=== PATIENT | male | born 1965 | race Caucasian/White ===

== ENCOUNTER → 2017-11-01 14:20 | Emergency (ER) | payer OTHER ==
[~2017-11-01 14:20] MED LIST: Bisoprolol TAB* 5 MG PO ONE; Metoprolol Tartrate IV* 1 MG/ML 5 ML VIAL IV ONE
[2017-11-01 16:13] LABS: ABS Basophils 0 10^3/ul (0-0.2); ABS Eosinophils 0 10^3/ul (0-0.6); ABS Lymphocytes 1.5 10^3/ul (1.0-4.8); ABS Monocytes 0.4 10^3/ul (0-0.8); ABS Neutrophils 4.2 10^3/ul (1.5-7.7); ABS Nucleated RBC 0 10^3/ul; Eosinophil % 0.6 % (0-6); Hematocrit 44 % (42-52); Hemoglobin 15.4 g/dl (14.0-18.0); Lymphocyte % 24.3 % (25-47); Mean Corpuscular HGB Conc 35 g/dl (31-36); Mean Corpuscular Hemoglobin 29 pg (27-31); Mean Corpuscular Volume 82 fL (80-94); Mean Platelet Volume 8.3 um3 (7.4-10.4); Nucleated Red Blood Cells % 0; Platelet Count 177 10^3/ul (150-450); Red Cell Distribution Width 14 % (10.5-15); White Blood Count 6.1 10^3/ul (3.5-10.8)
[2017-11-01 16:28] LABS: EGFR Non-African American 95.6 (>60)
--- NOTE | 2017-11-01 16:52 | RAD ---
HISTORY: Headache, hypertension COMPARISONS: None TECHNIQUE: Multiple contiguous axial CT scans were obtained of the head without intravenous contrast. FINDINGS: HEMORRHAGE/INFARCT: There is no hemorrhage or acute infarct. MASSES/SHIFT: There is no mass or shift. EXTRA-AXIAL SPACES: There are no extra-axial fluid collections. SULCI AND VENTRICLES: The sulci and ventricles are normal in size and position for the patient's stated age. CEREBRUM: There are no focal parenchymal abnormalities. BRAINSTEM: There are no focal parenchymal abnormalities. CEREBELLUM: There are no focal parenchymal abnormalities. VESSELS: The vessels are grossly normal. PARANASAL SINUSES: The paranasal sinuses are clear. ORBITS: The orbits are unremarkable. BONES AND SOFT TISSUE: No bone or soft tissue abnormalities are noted. OTHER: None IMPRESSION: NO ACUTE INTRACRANIAL PATHOLOGY.
[2017-11-01 21:07] VITALS: BP 159/99
--- NOTE | 2017-11-04 13:12 | ED ---
Marii Niño Nilda, scribed for Mat Guardado MD on 11/01/17 at 1833 . Hypertension - HPI Summary HPI Summary: This patient is a 52 year old M presenting to [facility] with a chief complaint of constant chronic headache (top of his head) for the past 4-5 years, noting that he wakes up with QUINONES every day. The patient rates the pain 4/10 in severity. Symptoms aggravated and alleviated by nothing. Patient reports ringing in ears and blurry vision, but denies dizziness, lightheadedness, CP, SOB, and DUONG. Last CT Brain was 3-4 years ago, per pt. PMHx HTN. Medications for HTN taken once a night. - History of Current Complaint Chief Complaint: EDHypertension Stated Complaint: HIGH BP Time Seen by Provider: 11/01/17 15:38 Hx Obtained From: Patient Onset/Duration: Started Weeks Ago, Still Present Timing: Constant Aggravating Factor(s): Nothing Alleviating Factor(s): Nothing Associated Signs & Symptoms: Other: - QUINONES, ringing in ears and blurry vision, but denies dizziness, lightheadedness, CP, SOB, and DUONG. - Allergies/Home Medications Allergies/Adverse Reactions: Allergies Allergy/AdvReac Type Severity Reaction Status Date / Time No Known Allergies Allergy Verified 11/01/17 14:36 Home Medications: Home Medications Amitriptyline TAB* [Elavil TAB*] 25 mg PO DAILY 11/01/17 [History Confirmed ] Baclofen TAB* [Lioresal TAB*] 20 mg PO TID 11/01/17 [History Confirmed 11/01/17 ] Bisoprolol/Hydrochlorothiazide [Ziac 5-6.25 mg-] 1 tab PO DAILY 11/01/17 [ History Confirmed 11/01/17] Cyclobenzaprine TAB* [Flexeril 10 MG TAB*] 10 mg PO BEDTIME PRN 11/01/17 [ History Confirmed 11/01/17] Insulin ISOPH/REG 70/30 (*) [HumuLIN 70/30 (*)] 50 units SUBCUT TID AC 11/01/17 [History Confirmed 11/01/17] Pregabalin CAP(*) [Lyrica CAP(*)] 50 mg PO BID 11/01/17 [History Confirmed 11/01] PMH/Surg Hx/FS Hx/Imm Hx Endocrine/Hematology History: Reports: Hx Diabetes - Type II, Hx Thyroid Disease Cardiovascular History: Reports: Hx Hypertension Respiratory History: Denies: Hx Asthma, Hx Chronic Obstructive Pulmonary Disease (COPD) GI History: Denies: Hx Ulcer Infectious Disease History: No Infectious Disease History: Denies: Hx Clostridium Difficile, Hx Hepatitis, Hx Human Immunodeficiency Virus (HIV), Hx of Known/Suspected MRSA, Hx Shingles, Hx Tuberculosis, Hx Known/ Suspected VRE, Hx Known/Suspected VRSA, History Other Infectious Disease, Traveled Outside the [place] in Last 30 Days - Family History Known Family History: Positive: Cardiac Disease, Hypertension, Diabetes - Social History Alcohol Use: Rare Substance Use Type: Reports: None Smoking Status (MU): Former Smoker Type: Cigarettes Length of Time of Smoking/Using Tobacco: 27 years Have You Smoked in the Last Year: No Review of Systems Negative: Fever, Chills Positive: Blurred Vision, Other - ringing in the ears. Negative: Erythema Negative: Sore Throat Negative: Chest Pain Positive: Other - negative DUONG. Negative: Shortness Of Breath, Cough Negative: Abdominal Pain, Vomiting, Nausea Negative: dysuria, hematuria Negative: Myalgia, Edema Negative: Rash Neurological: Other - negative dizziness, lightheadedness Positive: Headache All Other Systems Reviewed And Are Negative: Yes Physical Exam - Summary Physical Exam Summary: Constitutional: Well-developed, Well-nourished, Alert. (-) Distressed Skin: Warm, Dry HENT: Normocephalic; Atraumatic Eyes: Conjunctiva normal Neck: Musculoskeletal ROM normal neck. (-) JVD, (-) Stridor, (-) Tracheal deviation Cardio: Rhythm regular, rate normal, Heart sounds normal; Intact distal pulses; The pedal pulses are 2+ and symmetric. Radial pulses are 2+ and symmetric. (-) Murmur Pulmonary/Chest wall: Effort normal. (-) Respiratory distress, (-) Wheezes, (-) Rales Abd: Soft, (-) Tenderness, (-) Distension, (-) Guarding, (-) Rebound Musculoskeletal: (-) Edema Lymph: (-) Cervical adenopathy Neuro: Alert, Oriented x3 Psych: Mood and affect Normal Triage Information Reviewed: Yes Vital Signs On Initial Exam: Initial Vitals Temp Pulse Resp BP Pulse Ox 98.2 F 84 16 188/105 96 11/01/17 14:32 11/01/17 14:32 11/01/17 14:32 11/01/17 14:32 11/01/17 14:32 Vital Signs Reviewed: Yes Diagnostics - Vital Signs Vital Signs Temp Pulse Resp BP Pulse Ox 11/01/17 14:32 98.2 F 84 16 188/105 96 - Laboratory Result Diagrams: 11/01/17 16:04 11/01/17 16:04 Lab Statement: Any lab studies that have been ordered have been reviewed, and results considered in the medical decision making process. - CT Brain CT Interpretation Completed By: Radiologist - CT Brain, per radiologist, reveals no acute intracranial pathology. Dr. Guardado has reviewed this radiology report. - EKG 1545 Cardiac Rate: NL EKG Rhythm: Sinus Rhythm - 83 bpm EKG Interpretation: no STEMI Re-Evaluation - Re-Evaluation First Eval Re-Evaluation Time: 21:05 Comment: Pt said he had QUINONES for the past 5 years that spreads from back of neck to top of head. Symptoms worsened with movement and is sometimes associated with paresthesia on left side. Discussed labs, imaging, and D/C plan with pt. Pt agreeable to D/C. Hypertension Course/Dx - Course Assessment/Plan: This patient is a 52 year old M presenting to [facility] with a chief complaint of constant chronic headache (top of his head) for the past 4-5 years, noting that he wakes up with QUINONES every day. The patient rates the pain 4/ 10 in severity. Symptoms aggravated and alleviated by nothing. Patient reports ringing in ears and blurry vision, but denies dizziness, lightheadedness, CP, SOB, and DUONG. Last CT Brain was 3-4 years ago, per pt. PMHx HTN. Medications for HTN taken once a night. An EKG reveals NSR, 83 bpm, no STEMI. CT Brain, per radiologist, reveals no acute intracranial pathology. Dr. Guardado has reviewed this radiology report. BP responded nicely to increased dose of Bisoprolol to 10 mg. Pt has been taking his medications at night. Pt was told that BP spikes typically occur in the morning and medications should be taken in morning. No evidence of end organ damage. No evidence of hypertensive urgency. QUINONES likely unrelated to the HTN. [[id number]] discussed case with Dr. Burnham ( neuro). Pt had outpatient MRI and neurology f/u planned. Pt is stable and will be D/C with f/u with Dr. Burnham and PCP in 3-5 days. Dx uncontrolled HTN and chronic QUINONES. - Diagnoses Provider Diagnoses: Uncontrolled hypertension, Chronic headache - Physician Notifications Discussed Care Of Patient With: Yuridia Burnham - Neurology Time Discussed With Above Provider: 20:47 Instructed by Provider To: Other - discussed case. Discharge - Sign-Out/Discharge Documenting (check all that apply): Discharge - Discharge Plan Condition: Stable Disposition: HOME Prescriptions: Bisoprolol/Hydrochlorothiazide [Ziac 10-6.25 mg-] 1 tab PO DAILY #14 tab Patient Education Materials: Heart Healthy Diet (ED), Hypertension (ED), General Headache (ED) Referrals: Joss Huff MD [Primary Care Provider] - 3 Days Yuridia Burnham MD [Medical Doctor] - 3 Days Additional Instructions: Keep your appointment for MRI and neurology outpatient. RETURN TO THE EMERGENCY DEPARTMENT FOR CHANGING OR WORSENING SYMPTOMS. The documentation as recorded by the Marii rodrigues Nilda accurately reflects the service I personally performed and the decisions made by me, Mat Guardado MD.
== END | disposition home or self-care (01) ==
LOC: ED 14:20
DX: I10 Essential (primary) hypertension (principal); R51 Headache; Z87.891 Personal history of nicotine dependence; Z86.79 Personal history of other diseases of the circulatory system; H53.8 Other visual disturbances
CPT/HCPCS: 36415; 70450; 80053; 83605; 84484; 85025; 93005; 96374; 99284; A9270-GY; J3490

== ENCOUNTER 2018-05-25 14:09 | Emergency (ER) | payer OTHER ==
[2018-05-25 14:40] VITALS: BP 168/102
--- NOTE | 2018-05-25 15:40 | UC ---
Back Pain HPI - HPI Summary HPI Summary: The patient is a 52-year-old male that had the acute onset of left CVA pain yesterday afternoon. The pain is colicky in nature. Today the pain moved to his left lower quadrant of the abdomen. He now has increased frequency of urination. His pain is been as severe as an 8 out of 10. Currently his pain is a 4 out of 10. His had no fever or chills. Denies any nausea vomiting or diarrhea. He is a type II diabetic with hypertension. He states that both his diabetic control and blood pressure control have been problematic in the past. He states that he checked his blood sugar today and it was about 250. States that was a good reading for him. - History of Current Complaint Chief Complaint: UCAbdominalPain Stated Complaint: ABD PAIN Time Seen by Provider: 05/25/18 15:25 Hx Obtained From: Patient Onset/Duration: Sudden Onset, Lasting Hours Timing: Constant Severity Initially: Moderate Severity Currently: Mild Pain Intensity: 4 Pain Scale Used: 0-10 Numeric Back Pain: Is Discrete @ - L CVA, Radiates To - L LQ ABD Character: Sharp Aggravating Factor(s): Nothing Alleviating Factor(s): Nothing Associated Signs And Symptoms: Positive: Abdominal Pain, Flank Pain, Other - increased freq urination today. Negative: Swelling, Redness, Bruising, Fever, Weakness, Numbness, Tingling, Bladder Incontinence, Bowel Incontinence, Weight Loss, Pain with Weight Bearing - Allergies/Home Medications Allergies/Adverse Reactions: Allergies Allergy/AdvReac Type Severity Reaction Status Date / Time No Known Allergies Allergy Verified 05/25/18 14:40 PMH/Surg Hx/FS Hx/Imm Hx Previously Healthy: Yes Endocrine History: Diabetes, Dyslipidemia Cardiovascular History: Hypertension - Surgical History Surgical History: None - Family History Known Family History: Positive: Cardiac Disease, Hypertension, Diabetes - Social History Alcohol Use: Occasionally Substance Use Type: None Smoking Status (MU): Former Smoker Type: Cigarettes Length of Time of Smoking/Using Tobacco: 27 years Have You Smoked in the Last Year: No When Did the Patient Quit Smoking/Using Tobacco: 2004 Review of Systems Constitutional: Negative Skin: Negative Eyes: Negative ENT: Negative Respiratory: Negative Cardiovascular: Negative Gastrointestinal: Abdominal Pain Genitourinary: Frequency Motor: Negative Neurovascular: Negative Musculoskeletal: Negative Neurological: Negative Psychological: Negative All Other Systems Reviewed And Are Negative: Yes Physical Exam Triage Information Reviewed: Yes Appearance: Well-Appearing, No Pain Distress, Well-Nourished Vital Signs: Initial Vital Signs Temp 98.2 F 05/25/18 14:34 Pulse 87 05/25/18 14:34 Resp 18 05/25/18 14:34 BP 168/102 05/25/18 14:34 Pulse Ox 98 05/25/18 14:34 Eyes: Positive: Conjunctiva Clear ENT: Positive: Hearing grossly normal, Uvula midline. Negative: Nasal congestion, Nasal drainage, Tonsillar swelling, Tonsillar exudate, Trismus, Muffled voice, Hoarse voice, Dental tenderness, Sinus tenderness Dental Exam: Normal Neck: Positive: Supple, Nontender, No Lymphadenopathy Respiratory: Positive: Lungs clear, Normal breath sounds, No respiratory distress, No accessory muscle use Cardiovascular: Positive: RRR, No Murmur Abdomen Description: Positive: Nontender, No Organomegaly, Soft. Negative: Bruit, CVA Tenderness (R), CVA Tenderness (L), Distended, Guarding Bowel Sounds: Positive: Present Musculoskeletal: Positive: ROM Intact, No Edema Neurological: Positive: Alert Psychological Exam: Normal Skin Exam: Normal Diagnostics - Laboratory Diagnostic Studies Completed/Ordered: +++ GLUCOSE, TR RBCs UA Back Pain Course/Dx - Course Course Of Treatment: NO CARDIAC NURSE PRACTITIONER HERE. Offerred to send patient to ER to [facility] to get a definative dx. He declines - Differential Dx/Diagnosis Provider Diagnoses: left flank pain of uncertain cause. suspect kidney stone Discharge - Sign-Out/Discharge Documenting (check all that apply): Patient Departure All imaging exams completed and their final reports reviewed: No Studies - Discharge Plan Condition: Stable Disposition: HOME Patient Education Materials: Kidney Stones (ED), Flank Pain (ED) Referrals: Joss Huff MD [Primary Care Provider] - As Soon As Possible (call in AM. Mention your acute onset of L back pain which has moved to the L lower abd. You had trace blood in urine. We were unable to image you for a stone this afternoon.) Additional Instructions: Strain urine you may have a kidney stone aleve 1-2 twice daily with food as needed for pain TO ER FOR: increased pain fever vomiting - Billing Disposition and Condition Condition: STABLE Disposition: Home
== END 2018-05-25 15:55 | disposition home or self-care (01) ==
LOC: UCEAST 14:09
DX: R10.32 Left lower quadrant pain (principal); R35.0 Frequency of micturition; Z87.891 Personal history of nicotine dependence
CPT/HCPCS: 81003; 99212; G0463

== ENCOUNTER 2018-06-18 08:02 | Day surgery (SDC) | payer OTHER ==
--- NOTE | 2018-06-13 21:42 | HP ---
CC: Dr. Joss Huff * ADMITTING HISTORY AND PHYSICAL: DATE OF ADMISSION: 06/18/18 ADMITTING DIAGNOSES: 1. Left renal calculus. 2. Left flank pain. PLANNED PROCEDURE: Left stent insertion and shock wave lithotripsy of left renal calculus. SURGEON: Dr. Gunn. HISTORY OF PRESENT ILLNESS: Myles Peguero is a 52-year-old gentleman who has had episodic left flank pain for the last 2 to 3 weeks. He was noted to have a fairly large about 1.2 to 1.3 cm calculus, which is located in the left lower pole at the time of his elevation, but I suspect it has been moving between the renal pelvis and the lower pole causing intermittent pain. PAST MEDICAL HISTORY: Significant for: 1. Diabetes mellitus. 2. Hypertension. 3. Hypothyroidism. 4. High cholesterol. 5. Chronic headaches. PAST SURGICAL HISTORY: Negative. MEDICATIONS ON ADMISSION: 1. Levothyroxine 50 mcg daily. 2. Bisoprolol mg daily. 3. Norvasc 5 mg daily. 4. Meloxicam 7.5 mg daily. 5. Losartan 100 mg daily. 6. Fenofibrate 160 mg daily. 7. Lyrica 50 mg daily. 8. Zonisamide 50 mg daily. 9. Humulin injections as directed. ALLERGIES: No known drug allergies. SMOKING HISTORY: He is a former smoker who quit in 2004 and has a 20-pack year smoking history prior to that. PHYSICAL EXAMINATION GENERAL: Reveals a pleasant, middle-aged gentleman. VITAL SIGNS: Blood pressure is 126/82, pulse 86 per minute, oxygen saturation 97% on room air. LUNGS: Clear bilaterally. CARDIOVASCULAR EXAM: Regular rate and rhythm. S1, S2. ABDOMEN: Soft with left flank tenderness. IMPRESSION: A 52-year-old gentleman with episodic left flank pain and a large left renal calculus, which I suspect has been moving between the renal pelvis and the lower pole causing his episodic pain. PLAN: Plan is for left stent insertion and shockwave lithotripsy of left renal calculus. I have discussed the procedure in detail including possible risks of bleeding, infection, incomplete fragmentation, and possible injury to the kidney. In addition to the large calculus, he also has an additional 3 mm left renal calculus, which I may try to fragment at the same time if feasible. [id number]/[facility] #: [id number] CHAPIN
[~2018-06-18 08:02] MED LIST changes: -Bisoprolol TAB* 5 MG PO ONE; +Buffered Lidocaine 0.9% SYRIN* 5 ML/SYR SYRINGE INTRADERM ONE; +Famotidine IV* 10 MG/ML 2 ML (20 mg) IV ONE; -Metoprolol Tartrate IV* 1 MG/ML 5 ML VIAL IV ONE
[2018-06-18] MEDS ORDERED: cefTRIAXone(*) 2 GM ADDV.VIAL IVPB ONE (08:36)
[2018-06-18] MEDS ORDERED: Famotidine IV* 10 MG/ML 2 ML (20 mg) ONE (08:36)
[2018-06-18] MEDS ORDERED: Propofol* 10 MG/ML 20 ML BTL IV PUSH ONE (10:23)
[2018-06-18] MEDS ORDERED: Midazolam* 1 MG/ML 5 ML VIAL (5 MG) ONE (10:23)
[2018-06-18] MEDS ORDERED: KETAMINE HCL* 50 MG/ML 10 ML VIAL ONE (10:23)
[2018-06-18] MEDS ORDERED: fentaNYL* 50 MCG/ML 2 ML VIAL (100 MCG VIAL) ONE ×2 (10:23→14:07)
[2018-06-18] MEDS ORDERED: Ondansetron INJ* 2 MG/ML VIAL ONE ×2 (10:23→14:07)
[2018-06-18] MEDS ORDERED: Dexamethasone IV* 4 MG/ML 1 ML (4 MG) ONE (10:23)
[2018-06-18] MEDS ORDERED: Lidocaine 2% PF * 5 ML VIAL ONE (10:23)
[2018-06-18] MEDS ORDERED: Ketorolac INJ* 30 MG/ML 1 ML VIAL ONE (10:23)
[2018-06-18] MEDS ORDERED: Morphine VIAL* 10 MG/ML 1 ML VIAL ONE (10:39)
[2018-06-18] MEDS ORDERED: Iohexol 180 (CONTRAST) 10 ML SDV IV ONE (11:10)
[2018-06-18] MEDS ORDERED: Furosemide IV* 10 MG/ML 2 ML VIAL (20 MG) ONE (11:22)
[2018-06-18] MEDS ORDERED: EPHEDrine (Pressors)* 50 MG/ML VIAL ONE (11:26)
[2018-06-18] MEDS ORDERED: Naloxone* 0.4 MG/ML 1 ML VIAL IV PRN (11:36)
[2018-06-18] MEDS ORDERED: oxyCODONE/Acetamin 5/325 MG* TAB PO PRN (11:36)
[2018-06-18] MEDS ORDERED: Ondansetron INJ* 2 MG/ML VIAL IV PRN (11:36)
[2018-06-18] MEDS ORDERED: oxyCODONE/Acetamin 5/325 MG* TAB ONE (14:07)
[2018-06-18] MEDS: fentaNYL* 50 MCG/ML 2 ML VIAL (100 MCG VIAL) IV PRN ×2 (14:08→14:41)
[2018-06-18] MEDS ORDERED: Tamsulosin CAP* 0.4 MG ONE (16:34)
[2018-06-18] MEDS ORDERED: DiMENhydriNATE IV* 50 MG/ML VIAL ONE (16:50)
[2018-06-18 17:14] VITALS: BP 170/91
--- NOTE | 2018-06-19 02:34 | OP ---
CC: Joss Huff MD * DATE OF OPERATION: 06/18/18 - [facility] DATE OF : 63 SURGEON: Cresencio Gunn MD ANESTHESIOLOGIST: Dr. Su. ANESTHESIA: General. PRE-OP DIAGNOSES: 1. Left flank pain. 2. Left renal calculus. POST-OP DIAGNOSES: 1. Left flank pain. 2. Left renal calculus. OPERATIVE PROCEDURES: 1. Left retrograde and left stent insertion, and cystoscopy. 2. Shockwave lithotripsy of left renal calculus. COMPLICATIONS: None. STENT USED: A 7-Cambodian stent, left ureter. POSTOPERATIVE CONDITION: Stable. INDICATIONS: Myles Peguero is a 52-year-old gentleman who has had episodic left flank pain secondary to a large left renal calculus. I have discussed the procedure of lithotripsy including possible risks of bleeding, infection, incomplete fragmentation, possible injury to the kidney and he understands and wishes to proceed as planned. DESCRIPTION OF PROCEDURE: After induction of general anesthesia, the patient was placed in dorsal lithotomy position. Sequential compression devices were in place and functioning. 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 The prostate was mildly enlarged. The bladder was examined and appeared unremarkable. A guidewire was introduced into the left ureter. Retrograde pyelogram did not reveal any evidence of obstruction. A 7-Cambodian stent was introduced with good proximal and distal positioning noted. Next, the patient was placed on the lithotripsy table in a supine position. The calculus which was in the lower pole was localized using fluoroscopy. Shockwave lithotripsy was commenced at a rate of 60 shocks per minute. After the initial 300 shocks, there was a pause in lithotripsy for several minutes in an effort to minimize any potential trauma to the kidney. Lithotripsy was then resumed and periodic imaging revealed adequate localization and fragmentation. A total of 2400 shocks were administered. My plan is to obtain a postoperative x-ray to assess the degree of fragmentation prior to scheduling stent removal. The patient tolerated the procedure satisfactorily and was transferred back to the recovery area in stable condition. [id number]/[facility] #: [id number] MTDD
== END 2018-06-18 18:02 | disposition home or self-care (01) ==
LOC: OR 08:02
PROVIDERS: ATTEND Urology
DX: N20.0 Calculus of kidney (principal); E11.9 Type 2 diabetes mellitus without complications; Z79.4 Long term (current) use of insulin; I10 Essential (primary) hypertension; E03.9 Hypothyroidism, unspecified; E78.00 Pure hypercholesterolemia, unspecified; R51 Headache
CPT/HCPCS: 74018; A9270-GY; C1876; J0696; J1100; J1240; J1885; J1940; J2250; J2270; J2405; J2704; J3010

== ENCOUNTER 2018-12-24 12:38 | Day surgery (SDC) | payer OTHER ==
--- NOTE | 2018-12-21 11:07 | HP ---
CC: Dr. Huff; Cresencio Gunn MD ADMITTING HISTORY AND PHYSICAL: DATE OF ADMISSION: 12/24/18 ADMITTING DIAGNOSIS: Left renal calculi. PLANNED PROCEDURE: Shock-wave lithotripsy, left renal calculi. SURGEON: Dr. Gunn. HISTORY OF PRESENT ILLNESS: Myles Peguero is a 53-year-old diabetic with a history of recurrent shira l calculi. He was recently evaluated and noted to have multiple left renal calculi and is being brou ght in for shock-wave lithotripsy of the same. PAST MEDICAL HISTORY: Significant for: 1. Diabetes mellitus. 2. Hypertension. 3. Hypothyroidism. 4. 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 5. Renal calculi. MEDICATIONS: On admission: 1. Jardiance 10 mg daily. 2. Levothyroxine 75 mcg daily. 3. Bisoprolol/hydrochlorothiazide 1 tablet daily. 4. Lyrica 200 mg a day. 5. Losartan 100 mg a day. 6. Atorvastatin 20 mg a day. 7. Fenofibrate 160 mg a day. 8. Meloxicam 7.5 mg a day. 9. Zonisamide 1 tablet daily. 10. Humulin 70/30 of 50 units twice a day. ALLERGIES: No known drug allergies. FAMILY HISTORY: Negative for stones. SOCIAL HISTORY: Smoking history, he is a former smoker who quit in 2004 with a 20- pack year smoking history prior to that. REVIEW OF SYSTEMS: He is otherwise in good health. He denies any chest pain or shortness of breath. PHYSICAL EXAMINATION GENERAL: Reveals a pleasant middle-aged gentleman. VITAL SIGNS: Blood pressure is 142/90, pulse 69 per minute and regular, oxygen saturation 98% on gin m air, temperature 96.7. LUNGS: Clear bilaterally. CARDIOVASCULAR EXAM: Regular rate and rhythm. S1 and S2. ABDOMEN: Soft with left flank tenderness. IMPRESSION: A 53-year-old diabetic with left renal calculi. I have discussed the procedure of lith otripsy in detail including possible risks of bleeding, infection, incomplete fragmentation and he un derstands and wishes to proceed as planned with shock-wave lithotripsy of left renal calculi. [id number]/[facility] #: [id number]
[~2018-12-24 12:38] MED LIST changes: -Buffered Lidocaine 0.9% SYRIN* 5 ML/SYR SYRINGE INTRADERM ONE; +Buffered Lidocaine 1% SYRIN* 1 ML/SYRINGE INTRADERM ONE; +DiMENhydriNATE IV* 50 MG/ML VIAL IV PUSH ONE; +DiMENhydriNATE IV* 50 MG/ML VIAL IV PUSH PRN; +Lactated Ringers 1000 ML Bag* 1,000 ML IV SCH; +Morphine 4 MG/ML VIAL (1 ml) 4 MG/ML VIAL IV PRN; +Naloxone* 0.4 MG/ML 1 ML VIAL IV PRN; +Ondansetron INJ* 2 MG/ML VIAL ONE; +PROCHLORPERAZINE INJ 5 MG/ML 2 ML VIAL IV PRN; +fentaNYL* 50 MCG/ML 2 ML VIAL (100 MCG VIAL) IV PRN; +oxyCODONE/Acetamin 5/325 MG* TAB PO PRN
[2018-12-24] MEDS ORDERED: Ondansetron ODT TAB* 4 MG ONE (12:58)
[2018-12-24] MEDS ORDERED: cefTRIAXone(*) 2 GM ADDV.VIAL IVPB ONE (12:58)
[2018-12-24] MEDS ORDERED: Famotidine IV* 10 MG/ML 2 ML (20 mg) ONE (12:59)
[2018-12-24] MEDS ORDERED: Midazolam* 1 MG/ML 5 ML VIAL (5 MG) ONE (14:50)
[2018-12-24] MEDS ORDERED: fentaNYL* 50 MCG/ML 2 ML VIAL (100 MCG VIAL) ONE (14:50)
[2018-12-24] MEDS ORDERED: KETAMINE HCL* 50 MG/ML 10 ML VIAL ONE (15:37)
[2018-12-24] MEDS ORDERED: hydrALAZINE IV* 20 MG/ML VIAL ONE (15:57)
[2018-12-24] MEDS ORDERED: Lidocaine 2% PF * 5 ML VIAL ONE (15:57)
[2018-12-24] MEDS ORDERED: Propofol* 10 MG/ML 20 ML BTL ONE (15:57)
[2018-12-24 18:31] VITALS: BP 142/86
--- NOTE | 2018-12-25 01:58 | OP ---
CC: Dr. Joss Huff * DATE OF OPERATION: 12/24/18 - [facility] DATE OF : 63 SURGEON: Dr. Gunn. ANESTHESIOLOGIST: Dr. Ramos. ANESTHESIA: General. PRE-OP DIAGNOSIS: Left renal calculi. POST-OP DIAGNOSIS: Left renal calculi. OPERATIVE PROCEDURE: Shockwave lithotripsy of left renal calculi. COMPLICATIONS: None. POSTOPERATIVE CONDITION: Stable. INDICATIONS: Myles Peguero is a 53-year-old diabetic who was noted to have multiple left renal calculi. I discussed this with him and discussed the procedure of shockwave lithotripsy in detail including risks of bleeding, infection, incomplete fragmentation and he is now being brought in for the procedure. DESCRIPTION OF PROCEDURE: After induction of general anesthesia, the patient was placed on the lithotripsy table in supine position. There was a cluster of calculi in the lower pole of the left kidney. The dominant calculus was targeted under fluoroscopic monitoring, with shockwave at a rate of 90 shocks per minute. Initial fluoroscopy revealed good localization and fragmentation and a total of 2000 shocks were distributed amongst the calculi with good fragmentation observed. It should be noted that after the initial 300 shocks, there was a pause in lithotripsy for several minutes in an effort to minimize any potential trauma to the kidney. The patient tolerated the procedure satisfactorily and was transferred back to the recovery area in stable condition. [id number]/[facility] #: [id number] MTDD
== END 2018-12-24 18:30 | disposition home or self-care (01) ==
LOC: OR 12:38
PROVIDERS: ATTEND Urology
DX: N20.0 Calculus of kidney (principal); E11.9 Type 2 diabetes mellitus without complications; Z79.84 Long term (current) use of oral hypoglycemic drugs; I10 Essential (primary) hypertension; E03.9 Hypothyroidism, unspecified; R51 Headache
CPT/HCPCS: 74018; A9270-GY; J0360; J0696; J2250; J2704; J3010

== ENCOUNTER 2020-12-24 13:58 | Observation (INO) ==
[2020-12-24 16:01] LABS: ABS Lymphocytes 0.9 10^3/ul (1.0-4.8); ABS Monocytes 0.5 10^3/ul (0-0.8); ABS Neutrophils 5.3 10^3/ul (1.5-7.7); Hematocrit 46 % (42-52); Hemoglobin 15.8 g/dL (14.0-18.0); Lymphocyte % 12.7 %; Mean Corpuscular HGB Conc 34 g/dL (31-36); Mean Corpuscular Hemoglobin 28 pg (27-31); Mean Corpuscular Volume 83 fL (80-94); Mean Platelet Volume 8.4 fL (7.4-10.4); Nucleated Red Blood Cells % 0.2; Platelet Count 130 10^3/uL (150-450); Red Blood Count 5.56 10^6 /uL (4.18-5.48); Red Cell Distribution Width 15 % (10-15); White Blood Count 6.8 10^3/uL (3.5-10.8)
[2020-12-24 16:16] LABS: Activated Partial Thrombo Time 28.6 seconds (26.0-38.0); INR 1.11 (0.82-1.09)
[2020-12-24 16:48] LABS: Albumin 4.5 g/dL (3.2-5.2); Albumin/Globulin Ratio 1.7 (1-3); C Reactive Protein 77.58 mg/L (<8.01); Calcium 9.3 mg/dL (8.6-10.3); EGFR African American 81.2 (>60); EGFR Non-African American 67.1 (>60); Globulin 2.7 g/dL (2-4); Potassium 3.6 mmol/L (3.5-5.0); Total Bilirubin 1.6 mg/dL (0.2-1.0); Total Protein 7.2 g/dL (6.4-8.9)
[2020-12-24] MEDS ORDERED: Iohexol 300 (CONTRAST) 10 ML SDV IV ONE (17:03)
[2020-12-24] MEDS ORDERED: Iodixanol (CONTRAST) 320 MG/ML 100 ML SDV IV ONE (17:21)
[2020-12-24 18:49] LABS: Urine Appearance Clear; Urine Bilirubin Negative (Negative); Urine Blood Negative (Negative); Urine Color Yellow; Urine Glucose 3+(>=500 mg/dL) (Negative); Urine Ketones 1+ (Negative); Urine Nitrite Negative (Negative); Urine Protein Negative (Negative); Urine Urobilinogen Negative (Negative)
[2020-12-24 19:10] LABS: Urine Bacteria Absent (Absent); Urine Red Blood Cell Absent (Absent); Urine White Blood Cell 1+(6-10/hpf) (Absent)
[2020-12-24 19:11] LABS: Urine Squamous Epithelial Cell Present (Absent)
[2020-12-24] MEDS ORDERED: Ciprofloxacin 400mg IVPREMIX 400 MG/200 ML BAG IVPB ONE (20:08)
[2020-12-24] MEDS ORDERED: NS 0.9% 1000 ml BAG 1,000 ML IV ONE (20:08)
[2020-12-24] MEDS ORDERED: Ondansetron 4 mg VIAL 2 MG/ML 2 ml VIAL IV ONE (20:13)
[2020-12-24] MEDS ORDERED: Ondansetron 4 mg VIAL 2 MG/ML 2 ml VIAL ONE (20:14)
[2020-12-24] MEDS ORDERED: Dextrose 50% Syringe 50 ml 25 GM/50 ML SYRINGE IV PUSH PRN (21:35)
[2020-12-24] MEDS ORDERED: Lactated Ringers 1000 ml BAG 1,000 ML IV SCH (22:00)
[2020-12-24] MEDS ORDERED: Ciprofloxacin 400mg IVPREMIX 400 MG/200 ML BAG IVPB SCH (22:00)
[2020-12-24 23:25] LABS: Albumin 4.2 g/dL (3.2-5.2); Albumin/Globulin Ratio 1.7 (1-3); Calcium 8.3 mg/dL (8.6-10.3); EGFR African American 104.3 (>60); EGFR Non-African American 86.2 (>60); Globulin 2.5 g/dL (2-4); Potassium 3.2 mmol/L (3.5-5.0); Total Bilirubin 1.4 mg/dL (0.2-1.0); Total Protein 6.7 g/dL (6.4-8.9)
[2020-12-24] MEDS: cefTRIAXone 1 gm/50 mL NS BAG 1 GM/50 ML BAG IVPB SCH (23:44)
[2020-12-25] MEDS ORDERED: Potassium Chlor 10 meq TAB PO ONE (00:42)
[2020-12-25] MEDS ORDERED: Ondansetron 4 mg VIAL 2 MG/ML 2 ml VIAL IV PRN (00:53)
[2020-12-25] MEDS: metroNIDAZOLE IV 500 MG/100ML 500 MG/100 ML BAG IVPB SCH ×3 (06:05→21:45)
[2020-12-25 07:57] LABS: ABS Lymphocytes 0.9 10^3/ul (1.0-4.8); ABS Monocytes 0.8 10^3/ul (0-0.8); ABS Neutrophils 4.2 10^3/ul (1.5-7.7); Eosinophil % 0.1 %; Hematocrit 39 % (42-52); Hemoglobin 13.5 g/dL (14.0-18.0); Lymphocyte % 15.5 %; Mean Corpuscular HGB Conc 34 g/dL (31-36); Mean Corpuscular Hemoglobin 28 pg (27-31); Mean Corpuscular Volume 82 fL (80-94); Mean Platelet Volume 8.4 fL (7.4-10.4); Nucleated Red Blood Cells % 0.1; Platelet Count 126 10^3/uL (150-450); Red Blood Count 4.79 10^6 /uL (4.18-5.48); Red Cell Distribution Width 14 % (10-15); White Blood Count 5.9 10^3/uL (3.5-10.8)
[2020-12-25] MEDS: DULoxetine DR 20 mg CAP PO SCH (09:25)
[2020-12-25] MEDS ORDERED: Lactated Ringers 1000 ml BAG 1,000 ML IV SCH (17:00)
[2020-12-26] MEDS: cefTRIAXone 1 gm/50 mL NS BAG 1 GM/50 ML BAG IVPB SCH (00:35)
[2020-12-26] MEDS: metroNIDAZOLE IV 500 MG/100ML 500 MG/100 ML BAG IVPB SCH (05:17)
[2020-12-26 06:21] LABS: ABS Eosinophils 0.1 10^3/ul (0-0.6); ABS Lymphocytes 0.9 10^3/ul (1.0-4.8); ABS Monocytes 0.7 10^3/ul (0-0.8); ABS Neutrophils 3.5 10^3/ul (1.5-7.7); Eosinophil % 1.1 %; Hematocrit 40 % (42-52); Hemoglobin 13.4 g/dL (14.0-18.0); Lymphocyte % 17.8 %; Mean Corpuscular HGB Conc 34 g/dL (31-36); Mean Corpuscular Hemoglobin 28 pg (27-31); Mean Corpuscular Volume 83 fL (80-94); Mean Platelet Volume 8.5 fL (7.4-10.4); Nucleated Red Blood Cells % 0.1; Platelet Count 124 10^3/uL (150-450); Red Blood Count 4.77 10^6 /uL (4.18-5.48); Red Cell Distribution Width 14 % (10-15); White Blood Count 5.1 10^3/uL (3.5-10.8)
[2020-12-26 06:34] LABS: Calcium 8.5 mg/dL (8.6-10.3); EGFR African American 124.6 (>60); Magnesium 1.9 mg/dL (1.9-2.7); Potassium 3.6 mmol/L (3.5-5.0)
[2020-12-26] MEDS: DULoxetine DR 20 mg CAP PO SCH (09:44)
[2020-12-26 12:18] VITALS: BP 128/81
== END 2020-12-26 12:45 | disposition home or self-care (01) ==
LOC: MED 13:58 → ED 13:58 → MED 23:10
PROVIDERS: ADMIT Internal Medicine; ATTEND Internal Medicine

== ENCOUNTER 2023-09-02 20:31 | Inpatient (IN) ==
[2023-09-02 21:18] LABS: High Sens Troponin Baseline 8 pg/mL (<20)
[2023-09-02 21:35] LABS: Hemoglobin 13.9 g/dL (13.2-16.3); Mean Corpuscular Hemoglobin 28.1 pg (27-33)
[2023-09-02 21:36] LABS: Mean Corpuscular Hgb Conc 34.2 g/dL (31-36); Red Blood Count 4.94 10^6/uL (4.06-5.63); White Blood Count 6.8 10^3/uL (3.6-10.2)
[2023-09-02 21:37] LABS: ABS Basophils 0.2 10^3/uL (0.0-0.1); ABS Eosinophils 0.1 10^3/uL (0.0-0.5); ABS Lymphocytes 1.6 10^3/uL (1.0-4.8); ABS Monocytes 0.4 10^3/uL (0.0-1.1); ABS Neutrophils 4.6 10^3/uL (1.5-7.6); ABS Nucleated RBC 0.01 10^3/ul; Eosinophil % 0.9 %; Hematocrit 40.6 % (38-53); Lymphocyte % 23.1 %; Mean Corpuscular Volume 82.1 fL (80-97); Mean Platelet Volume 9.6 fL (7.5-11.2); Nucleated Red Blood Cells % 0.1 %/100WBC (0.0-0.8); Platelet Count 282 10^3/uL (150-450); Red Cell Distribution Width 15.3 % (12-17)
[2023-09-02 21:43] LABS: Albumin 5.5 g/dL (3.2-5.2); Alkaline Phosphatase 66 U/L (35-149); Anion Gap 6 mmol/L (2-16); CO2 Carbon Dioxide 24 mmol/L (22-32); Calcium 9.9 mg/dL (8.6-10.3); Chloride 92 mmol/L (101-111); Creatinine, Serum 1.94 mg/dL (0.67-1.17); Globulin 2.7 g/dL (2-4); Glucose 285 mg/dL (70-100); Sodium 122 mmol/L (135-145); Total Bilirubin 0.9 mg/dL (0.2-1.0); Total Protein 8.2 g/dL (6.4-8.9); eGFR CKD-EPI 39.1 (>60)
[2023-09-02 21:44] LABS: ALT 30 U/L (7-52); INR 0.95 (0.83-1.13)
[2023-09-02] MEDS ORDERED: Calcium Gluconate 2 GM in NS 0.9% 100 ml BAG 100 ML IVPB ONE ×2 (21:50→23:44)
[2023-09-02 22:30] LABS: High Sensitivity Troponin 1 Hr 9 pg/mL (<20)
[2023-09-02 22:52] LABS: Cholesterol 456 mg/dL; Triglycerides 750 mg/dL
[2023-09-02 23:10] LABS: LDL Cholesterol Direct 51 mg/dL
[2023-09-02 23:40] LABS: Lipase 109 U/L (11.0-82.0)
[2023-09-02 23:42] LABS: Potassium, Whole Blood 7.2 mmol/L (3.4-4.5)
[2023-09-02] MEDS ORDERED: Dextrose 50% Syringe 50 ml 25 GM/50 ML SYRINGE IV PUSH ONE (23:43)
[2023-09-03] MEDS ORDERED: CALCIUM GLUCONATE 1GM/50ML NS BAG IV SCH
[2023-09-03 00:01] LABS: AST Redraw 113 U/L (13-39)
[2023-09-03] MEDS: CALCIUM GLUCONATE 1GM/50ML NS BAG IV SCH ×2 (00:01→01:01)
[2023-09-03 00:38] LABS: Rapid COVID-19 Molecular Undetected (Undetected)
[2023-09-03 00:42] LABS: Influenza A Molecular Negative (Negative); Influenza B Molecular Negative (Negative)
[2023-09-03] MEDS ORDERED: SODIUM ZIRCONIUM CYCLOSILICATE 10 GM PACKET PO ONE (01:07)
[2023-09-03 01:39] LABS: Potassium 6.2 mmol/L (3.5-5.0)
[2023-09-03 01:40] LABS: Anion Gap 6 mmol/L (2-16); CO2 Carbon Dioxide 21 mmol/L (22-32); Calcium 9.3 mg/dL (8.6-10.3); Chloride 94 mmol/L (101-111); Creatinine, Serum 1.62 mg/dL (0.67-1.17); Glucose 264 mg/dL (70-100); Sodium 121 mmol/L (135-145); eGFR CKD-EPI 48.6 (>60)
[2023-09-03] MEDS: DULoxetine DR 60 mg CAP PO SCH ×2 (02:32→20:33)
[2023-09-03 03:42] LABS: TSH Ultra Thyroid Stim Horm 17.68 mcIU/mL (0.34-5.60)
[2023-09-03] MEDS: SODIUM ZIRCONIUM CYCLOSILICATE 10 GM PACKET PO SCH ×2 (08:25→20:34)
[2023-09-03 09:45] LABS: ABS Basophils 0.1 10^3/uL (0.0-0.1); ABS Eosinophils 0.1 10^3/uL (0.0-0.5); ABS Lymphocytes 1.4 10^3/uL (1.0-4.8); ABS Monocytes 0.3 10^3/uL (0.0-1.1); ABS Neutrophils 3.7 10^3/uL (1.5-7.6); ABS Nucleated RBC 0.01 10^3/ul; Eosinophil % 1.5 %; Hematocrit 40.4 % (38-53); Hemoglobin 14.8 g/dL (13.2-16.3); Lymphocyte % 24.9 %; Mean Corpuscular Hemoglobin 30.2 pg (27-33); Mean Corpuscular Hgb Conc 36.6 g/dL (31-36); Mean Corpuscular Volume 82.6 fL (80-97); Mean Platelet Volume 9.4 fL (7.5-11.2); Nucleated Red Blood Cells % 0.1 %/100WBC (0.0-0.8); Platelet Count 212 10^3/uL (150-450); Red Blood Count 4.89 10^6/uL (4.06-5.63); White Blood Count 5.6 10^3/uL (3.6-10.2)
[2023-09-03 10:21] LABS: Urine Appearance Clear; Urine Bilirubin Negative (Negative); Urine Blood Negative (Negative); Urine Color Yellow; Urine Glucose 3+(>=500 mg/dL) (Negative); Urine Ketones Negative (Negative); Urine Nitrite Negative (Negative); Urine Protein 1+(30 mg/dL) (Negative); Urine Specific Gravity 1.013 (1.002-1.030); Urine Urobilinogen Negative (Negative)
[2023-09-03 10:49] LABS: Urine Bacteria Absent (Absent); Urine Red Blood Cell Trace(0-2/hpf) (Absent); Urine White Blood Cell Trace(0-5/hpf) (Absent)
[2023-09-03 11:25] LABS: ALT 28 U/L (7-52); Albumin 4.8 g/dL (3.2-5.2); Albumin/Globulin Ratio 1.7 (1-3); Alkaline Phosphatase 63 U/L (35-149); Anion Gap 9 mmol/L (2-16); Blood Urea Nitrogen 20 mg/dL (6-24); CO2 Carbon Dioxide 27 mmol/L (22-32); Calcium 9.5 mg/dL (8.6-10.3); Chloride 94 mmol/L (101-111); Creatinine, Serum 1.16 mg/dL (0.67-1.17); Globulin 2.8 g/dL (2-4); Glucose 195 mg/dL (70-100); Sodium 130 mmol/L (135-145); Total Bilirubin 0.6 mg/dL (0.2-1.0); Total Protein 7.6 g/dL (6.4-8.9); eGFR CKD-EPI 72.6 (>60)
[2023-09-03 12:03] LABS: Potassium, Whole Blood 5.7 mmol/L (3.4-4.5)
[2023-09-03 12:17] LABS: Urine Creatinine Concentration 76.63 mg/dL (20.00-370.00)
[2023-09-03 13:13] LABS: Urine Osmo 498 mOsm/kg (150-1150)
[2023-09-04 05:58] LABS: ABS Basophils 0.1 10^3/uL (0.0-0.1); ABS Eosinophils 0.1 10^3/uL (0.0-0.5); ABS Lymphocytes 1.6 10^3/uL (1.0-4.8); ABS Monocytes 0.3 10^3/uL (0.0-1.1); ABS Neutrophils 2.5 10^3/uL (1.5-7.6); ABS Nucleated RBC 0.01 10^3/ul; Eosinophil % 1.6 %; Hematocrit 39.9 % (38-53); Hemoglobin 13.7 g/dL (13.2-16.3); Lymphocyte % 34.6 %; Mean Corpuscular Hemoglobin 28.4 pg (27-33); Mean Corpuscular Hgb Conc 34.3 g/dL (31-36); Mean Corpuscular Volume 82.6 fL (80-97); Mean Platelet Volume 8.8 fL (7.5-11.2); Nucleated Red Blood Cells % 0.1 %/100WBC (0.0-0.8); Platelet Count 163 10^3/uL (150-450); Red Blood Count 4.83 10^6/uL (4.06-5.63); White Blood Count 4.6 10^3/uL (3.6-10.2)
[2023-09-04 06:28] LABS: Anion Gap 6 mmol/L (2-16); Blood Urea Nitrogen 24 mg/dL (6-24); CO2 Carbon Dioxide 25 mmol/L (22-32); Calcium 9.2 mg/dL (8.6-10.3); Chloride 102 mmol/L (101-111); Creatinine, Serum 1.18 mg/dL (0.67-1.17); Glucose 247 mg/dL (70-100); Sodium 133 mmol/L (135-145); eGFR CKD-EPI 71.1 (>60)
[2023-09-04 06:42] LABS: Potassium, Whole Blood 4.4 mmol/L (3.4-4.5)
[2023-09-04] MEDS: SODIUM ZIRCONIUM CYCLOSILICATE 10 GM PACKET PO SCH (07:50)
[2023-09-04] MEDS ORDERED: Insulin LISPRO FOR INSULIN PUMP SUBCUT SCH (12:00)
[2023-09-04] MEDS ORDERED: Regadenoson 0.4 MG/5 ML SYRINGE ONE (13:24)
[2023-09-04] MEDS ORDERED: Labetalol IV 5 MG/ML 20 ml VIAL IV PUSH PRN (16:45)
[2023-09-04] MEDS: Aspirin EC 81 mg TAB.EC (enteric coated) PO SCH (17:00)
[2023-09-04] MEDS ORDERED: Dextrose 50% Syringe 50 ml 25 GM/50 ML SYRINGE IV PUSH PRN (17:03)
[2023-09-04] MEDS ORDERED: Carvedilol 12.5 MG TAB (NF) PO SCH (21:00)
[2023-09-04] MEDS: DULoxetine DR 60 mg CAP PO SCH (22:25)
[2023-09-05] MEDS ORDERED: NS 0.9% 1000 ml BAG 1,000 ML IV SCH ×2 (06:00→10:45)
[2023-09-05 06:03] LABS: Activated Partial Thrombo Time 29.2 seconds (26.0-38.0); INR 0.96 (0.83-1.13)
[2023-09-05] MEDS: Aspirin EC 81 mg TAB.EC (enteric coated) PO SCH (07:44)
[2023-09-05 08:39] LABS: Hematocrit 37.5 % (38-53); Hemoglobin 13.1 g/dL (13.2-16.3); Mean Corpuscular Hemoglobin 29.1 pg (27-33); Mean Corpuscular Hgb Conc 34.8 g/dL (31-36); Mean Corpuscular Volume 83.6 fL (80-97); Mean Platelet Volume 10.4 fL (7.5-11.2); Platelet Count 136 10^3/uL (150-450); Red Blood Count 4.49 10^6/uL (4.06-5.63); Red Cell Distribution Width 14.7 % (12-17)
[2023-09-05 08:49] LABS: Blood Urea Nitrogen 21 mg/dL (6-24); CO2 Carbon Dioxide 23 mmol/L (22-32); Calcium 8.8 mg/dL (8.6-10.3); Chloride 100 mmol/L (101-111); Creatinine, Serum 1.15 mg/dL (0.67-1.17); Glucose 379 mg/dL (70-100); eGFR CKD-EPI 73.3 (>60)
[2023-09-05 08:50] LABS: Sodium 132 mmol/L (135-145)
[2023-09-05 08:56] LABS: Anion Gap 9 mmol/L (2-16)
[2023-09-05] MEDS ORDERED: Heparin 1,000 UNIT/ML 10 ml (10,000 UNITS) CATHLAB/DIALYSIS ONE (09:25)
[2023-09-05] MEDS ORDERED: VERAPAMIL 2.5 MG/ML 2 ML VIAL ** 5 mg/2 ml ONE (09:25)
[2023-09-05] MEDS ORDERED: Midazolam 5 mg/5 ml VIAL 1 mg/ml 5 ml VIAL (5 mg) ONE (09:25)
[2023-09-05] MEDS ORDERED: fentaNYL 100 mcg/2 ml 50 MCG/ML VIAL ONE (09:25)
[2023-09-05] MEDS ORDERED: Lidocaine 1% MPF 5 ML VIAL ONE (09:26)
[2023-09-05] MEDS ORDERED: nitroGLYCERIN DRIP 25,000 MCG/250 ML BTL ONE (09:26)
[2023-09-05] MEDS ORDERED: Heparin 2 UNITS/ML 1000 mls 2,000 ML IV ONE (09:26)
[2023-09-05] MEDS ORDERED: Iohexol 350 (CONTRAST) 100 ML PAK IV ONE (09:26)
[2023-09-05] MEDS ORDERED: Iohexol 350 (CONTRAST) 200 ML MDV IV ONE (09:26)
[2023-09-05] MEDS ORDERED: fentaNYL 100 mcg/2 ml 50 MCG/ML VIAL IV SLOW PU ONE (09:38)
[2023-09-05] MEDS ORDERED: Midazolam 10 mg/10 ml VIAL 1 mg/ml 10 ml VIAL (10 mg) IV SLOW PU ONE (09:38)
[2023-09-05 16:19] VITALS: BP 148/87
== END 2023-09-05 17:00 | disposition home or self-care (01) | DRG 191 ==
LOC: ED 20:31 → SUATTDRO 09-03 00:01 → EDHOLD 09-03 00:01 → MEDTELE 09-03 01:46
PROVIDERS: ADMIT Internal Medicine; ATTEND Family Medicine

== ENCOUNTER 2024-06-12 20:49 | Inpatient (IN) ==
[2024-06-12 22:27] LABS: Hemoglobin 13.6 g/dL (13.2-16.3); High Sens Troponin Baseline 11 pg/mL (<20); Mean Corpuscular Hemoglobin 27.2 pg (27-33); Mean Corpuscular Hgb Conc 33.6 g/dL (31-36)
[2024-06-12 22:56] LABS: Albumin 4.9 g/dL (3.2-5.2); Albumin/Globulin Ratio 1.9 (1-3); Alkaline Phosphatase 104 U/L (35-149); Anion Gap 14 mmol/L (2-16); CO2 Carbon Dioxide 24 mmol/L (22-32); Calcium 10.3 mg/dL (8.6-10.3); Chloride 89 mmol/L (101-111); Creatinine, Serum 1.67 mg/dL (0.67-1.17); Globulin 2.6 g/dL (2-4); Glucose 159 mg/dL (70-100); Sodium 127 mmol/L (135-145); Total Bilirubin < 0.1 mg/dL (0.2-1.0); Total Protein 7.5 g/dL (6.4-8.9); eGFR CKD-EPI 46.9 (>60)
[2024-06-12 23:27] LABS: Potassium, Whole Blood 5.6 mmol/L (3.4-4.5)
[2024-06-12 23:30] LABS: High Sensitivity Troponin 1 Hr 12 pg/mL (<20)
[2024-06-12 23:39] LABS: INR 0.98 (0.85-1.14)
[2024-06-13] MEDS: Morphine 4 MG/ML VIAL (1 ml) IV ONE (00:18)
[2024-06-13] MEDS: Ondansetron 4 mg VIAL 2 MG/ML 2 ml VIAL IV ONE (00:18)
[2024-06-13] MEDS: Lactated Ringers 1000 ml BAG 1,000 ML IV ONE ×2 (00:19→03:03)
[2024-06-13 00:21] LABS: ABS Basophils 0.1 10^3/uL (0.0-0.1); ABS Lymphocytes 1.5 10^3/uL (1.0-4.8); ABS Monocytes 0.9 10^3/uL (0.0-1.1); ABS Neutrophils 9.2 10^3/uL (1.5-7.6); ABS Nucleated RBC 0.01 10^3/ul; Eosinophil % 0.4 %; Hematocrit 40.6 % (38-53); Lymphocyte % 12.4 %; Mean Corpuscular Volume 81.2 fL (80-97); Mean Platelet Volume 8.7 fL (7.5-11.2); Nucleated Red Blood Cells % 0.1 %/100WBC (0.0-0.8); Platelet Count 295 10^3/uL (150-450); Red Cell Distribution Width 14.1 % (12-17); White Blood Count 11.8 10^3/uL (3.6-10.2)
[2024-06-13 00:24] LABS: C Reactive Protein 45.87 mg/L (<8.01); Lipase 356 U/L (11.0-82.0)
[2024-06-13 00:30] LABS: ALT 17 U/L (7-52)
[2024-06-13] MEDS: Iodixanol 320 (CONTRAST) 100 ML SDV IV ONE (01:18)
[2024-06-13 02:09] LABS: Potassium, Whole Blood 7.2 mmol/L (3.4-4.5)
[2024-06-13 02:30] LABS: Triglycerides > 5000 mg/dL
[2024-06-13] MEDS: Dextrose 50% Syringe 50 ml 25 GM/50 ML SYRINGE IV PUSH ONE ×2 (02:43→03:19)
[2024-06-13] MEDS: CALCIUM GLUCONATE 1GM/50ML NS 1 GM/50 ML BAG IV ONE (03:02)
[2024-06-13] MEDS ORDERED: Dextrose 50% Syringe 50 ml 25 GM/50 ML SYRINGE IV PUSH PRN ×2 (03:41→06:57)
[2024-06-13] MEDS: SODIUM ZIRCONIUM CYCLOSILICATE 10 GM PACKET PO ONE (03:49)
[2024-06-13 04:49] LABS: Urine Appearance Clear; Urine Bacteria Absent /HPF (Absent); Urine Bilirubin Negative (Negative); Urine Blood Trace (Negative); Urine Color Light-Yellow; Urine Glucose 4+ (>=1000 mg/dL) (Negative); Urine Ketones 1+ (Negative); Urine Nitrite Negative (Negative); Urine Protein 2+ (>=100 mg/dL) (Negative); Urine Red Blood Cell Trace(0-2/hpf) /HPF (0-Trace); Urine Specific Gravity 1.038 (1.002-1.030); Urine Urobilinogen Negative (Negative); Urine White Blood Cell Absent /HPF (0-Trace); Urine pH 5.5 (5.0-8.0)
[2024-06-13] MEDS: Lactated Ringers 1000 ml BAG 1,000 ML IV SCH (05:27)
[2024-06-13 05:49] LABS: ABS Basophils 0.1 10^3/uL (0.0-0.1); ABS Monocytes 0.9 10^3/uL (0.0-1.1); ABS Neutrophils 7.9 10^3/uL (1.5-7.6); ABS Nucleated RBC 0.01 10^3/ul; Eosinophil % 0.3 %; Hematocrit 34.4 % (38-53); Hemoglobin 12.6 g/dL (13.2-16.3); Lymphocyte % 10.1 %; Mean Corpuscular Hemoglobin 29.9 pg (27-33); Mean Corpuscular Hgb Conc 36.7 g/dL (31-36); Mean Corpuscular Volume 81.7 fL (80-97); Mean Platelet Volume 8.4 fL (7.5-11.2); Nucleated Red Blood Cells % 0.1 %/100WBC (0.0-0.8); Platelet Count 197 10^3/uL (150-450); Red Blood Count 4.21 10^6/uL (4.06-5.63); Red Cell Distribution Width 14.1 % (12-17); White Blood Count 9.9 10^3/uL (3.6-10.2)
[2024-06-13 06:41] LABS: Anion Gap 7 mmol/L (2-16); Blood Urea Nitrogen 12 mg/dL (6-24); CO2 Carbon Dioxide 27 mmol/L (22-32); Calcium 9.2 mg/dL (8.6-10.3); Chloride 92 mmol/L (101-111); Glucose 256 mg/dL (70-100); Sodium 126 mmol/L (135-145)
[2024-06-13 06:42] LABS: Albumin 3.9 g/dL (3.2-5.2); Albumin/Globulin Ratio 1.7 (1-3); Alkaline Phosphatase 77 U/L (35-149); Globulin 2.3 g/dL (2-4); Total Bilirubin 0.9 mg/dL (0.2-1.0); Total Protein 6.2 g/dL (6.4-8.9); Triglycerides 2665 mg/dL
[2024-06-13 07:15] LABS: ALT 14 U/L (7-52)
[2024-06-13 07:17] LABS: Creatinine, Serum 0.86 mg/dL (0.67-1.17); eGFR CKD-EPI 99.7 (>60)
[2024-06-13] MEDS: Insulin Infusion 100unit/100mL 100 UNIT/100 ML BAG IV ONE (07:46)
[2024-06-13] MEDS: Aspirin EC 81 mg TAB.EC (enteric coated) PO SCH (08:38)
[2024-06-13] MEDS: Heparin 5000 UNITS/ML 1 mL VIAL SUBCUT SCH (08:39)
[2024-06-13] MEDS: DULoxetine DR 60 mg CAP PO SCH (08:39)
[2024-06-13] MEDS: Morphine 2 MG/ML SYRINGE IV PRN (09:33)
[2024-06-13] MEDS: D5LR 1000 ml BAG 1,000 ML IV SCH (09:56)
[2024-06-13 10:46] LABS: TSH Ultra Thyroid Stim Horm 2.71 mcIU/mL (0.34-5.60)
[2024-06-13 10:49] LABS: Free T4 1.34 ng/dL (0.61-1.12)
[2024-06-13 13:05] LABS: Urine Creatinine Concentration 73.96 mg/dL (20.00-370.00)
[2024-06-13 14:09] LABS: Urine Osmo 561 mOsm/kg (150-1150)
[2024-06-13 14:17] LABS: Magnesium 1.8 mg/dL (1.9-2.7)
[2024-06-13 15:10] LABS: Osmolality Serum 285 mOsm/kg (275-295)
[2024-06-13] MEDS: [UNRECOGNIZED DRUG - REMARK] PO SCH (15:15)
[2024-06-13] MEDS: Magnesium Sulfate 2 gm BAG 2 GM/50 ML BAG IVPB ONE (16:05)
[2024-06-13 17:36] LABS: Calcium 8.8 mg/dL (8.6-10.3); Creatinine, Serum 0.78 mg/dL (0.67-1.17); Potassium 3.3 mmol/L (3.5-5.0); eGFR CKD-EPI 102.7 (>60)
[2024-06-13 17:38] LABS: Magnesium 2.7 mg/dL (1.9-2.7)
[2024-06-13] MEDS: Potassium Chloride LIQUID 20 MEQ/15 ML LIQUID PO ONE (19:54)
[2024-06-13] MEDS ORDERED: Insulin Infusion 100unit/100mL 100 UNIT/100 ML BAG IV SCH (21:00)
[2024-06-13 22:01] LABS: Anion Gap 7 mmol/L (2-16); Blood Urea Nitrogen 7 mg/dL (6-24); CO2 Carbon Dioxide 31 mmol/L (22-32); Calcium 8.6 mg/dL (8.6-10.3); Chloride 97 mmol/L (101-111); Creatinine, Serum 0.91 mg/dL (0.67-1.17); Glucose 225 mg/dL (70-100); Sodium 135 mmol/L (135-145); eGFR CKD-EPI 97.1 (>60)
[2024-06-13 22:54] LABS: Phosphorus 2.8 mg/dL (2.5-5.0); Potassium Redraw 3.3 mmol/L (3.5-5.0)
[2024-06-13] MEDS: KCL 20 MEQ/100 ML IVPREMIX 20 MEQ/100 ML BAG IV SCH (23:56)
[2024-06-14] MEDS: Insulin Infusion 100unit/100mL 100 UNIT/100 ML BAG IV SCH (03:06)
[2024-06-14 04:20] LABS: ABS Basophils 0.1 10^3/uL (0.0-0.1); ABS Eosinophils 0.1 10^3/uL (0.0-0.5); ABS Lymphocytes 0.9 10^3/uL (1.0-4.8); ABS Monocytes 0.6 10^3/uL (0.0-1.1); ABS Neutrophils 7.1 10^3/uL (1.5-7.6); ABS Nucleated RBC 0.01 10^3/ul; Eosinophil % 0.7 %; Hematocrit 34.4 % (38-53); Lymphocyte % 10.3 %; Mean Corpuscular Hemoglobin 28.4 pg (27-33); Mean Corpuscular Hgb Conc 34.7 g/dL (31-36); Mean Corpuscular Volume 81.8 fL (80-97); Mean Platelet Volume 8.5 fL (7.5-11.2); Nucleated Red Blood Cells % 0.1 %/100WBC (0.0-0.8); Platelet Count 158 10^3/uL (150-450); Red Blood Count 4.21 10^6/uL (4.06-5.63); White Blood Count 8.7 10^3/uL (3.6-10.2)
[2024-06-14 04:58] LABS: Calcium 8.6 mg/dL (8.6-10.3); Creatinine, Serum 0.79 mg/dL (0.67-1.17); Potassium 3.9 mmol/L (3.5-5.0); eGFR CKD-EPI 102.3 (>60)
[2024-06-14] MEDS: KCL 20 MEQ/100 ML IVPREMIX 20 MEQ/100 ML BAG IV ONE (06:54)
[2024-06-14 15:30] LABS: Anion Gap 5 mmol/L (2-16); Blood Urea Nitrogen 7 mg/dL (6-24); CO2 Carbon Dioxide 28 mmol/L (22-32); Calcium 8.4 mg/dL (8.6-10.3); Chloride 98 mmol/L (101-111); Creatinine, Serum 0.79 mg/dL (0.67-1.17); Glucose 242 mg/dL (70-100); Sodium 131 mmol/L (135-145); Triglycerides 979 mg/dL; eGFR CKD-EPI 102.3 (>60)
[2024-06-14 16:41] LABS: Magnesium 1.8 mg/dL (1.9-2.7); Phosphorus 2.6 mg/dL (2.5-5.0); Potassium Redraw 3.8 mmol/L (3.5-5.0)
[2024-06-14] MEDS: Magnesium Sulfate 2 gm BAG 2 GM/50 ML BAG IVPB ONE (17:05)
[2024-06-14 23:52] LABS: Calcium 8.3 mg/dL (8.6-10.3); Creatinine, Serum 0.85 mg/dL (0.67-1.17); Magnesium 2.1 mg/dL (1.9-2.7); Phosphorus 2.3 mg/dL (2.5-5.0); Potassium 3.7 mmol/L (3.5-5.0); eGFR CKD-EPI 100.1 (>60)
[2024-06-15 05:00] LABS: ABS Basophils 0.1 10^3/uL (0.0-0.1); ABS Eosinophils 0.1 10^3/uL (0.0-0.5); ABS Lymphocytes 1.3 10^3/uL (1.0-4.8); ABS Monocytes 0.5 10^3/uL (0.0-1.1); ABS Neutrophils 5.7 10^3/uL (1.5-7.6); Eosinophil % 0.8 %; Hematocrit 32.4 % (38-53); Hemoglobin 11.2 g/dL (13.2-16.3); Lymphocyte % 16.6 %; Mean Corpuscular Hemoglobin 28.6 pg (27-33); Mean Corpuscular Hgb Conc 34.6 g/dL (31-36); Mean Corpuscular Volume 82.6 fL (80-97); Mean Platelet Volume 8.6 fL (7.5-11.2); Nucleated Red Blood Cells % 0.1 %/100WBC (0.0-0.8); Platelet Count 154 10^3/uL (150-450); Red Blood Count 3.92 10^6/uL (4.06-5.63); Red Cell Distribution Width 13.9 % (12-17); White Blood Count 7.7 10^3/uL (3.6-10.2)
[2024-06-15 05:39] LABS: Calcium 8.3 mg/dL (8.6-10.3); Creatinine, Serum 0.88 mg/dL (0.67-1.17); Magnesium 1.9 mg/dL (1.9-2.7); Phosphorus 2.2 mg/dL (2.5-5.0); Potassium 3.7 mmol/L (3.5-5.0); eGFR CKD-EPI 99.1 (>60)
[2024-06-15] MEDS: Magnesium Sulfate 2 gm BAG 2 GM/50 ML BAG IVPB ONE (06:05)
[2024-06-15] MEDS: Potassium Chlor 20 meq TAB.ER PO ONE (06:06)
[2024-06-15] MEDS: Potassium Phosphate IV 15 MMOL in NS 0.9% 250 ml 250 ML IVPB ONE (09:40)
[2024-06-15] MEDS: DULoxetine DR 60 mg CAP PO SCH (11:26)
[2024-06-15] MEDS ORDERED: DULoxetine DR 60 mg CAP PO SCH (21:00)
[2024-06-16 06:42] LABS: ABS Eosinophils 0.1 10^3/uL (0.0-0.5); ABS Lymphocytes 1.1 10^3/uL (1.0-4.8); ABS Monocytes 0.4 10^3/uL (0.0-1.1); ABS Neutrophils 3.5 10^3/uL (1.5-7.6); Eosinophil % 1.8 %; Hematocrit 37.1 % (38-53); Hemoglobin 12.6 g/dL (13.2-16.3); Lymphocyte % 21.8 %; Mean Corpuscular Hemoglobin 28.3 pg (27-33); Mean Corpuscular Hgb Conc 33.9 g/dL (31-36); Mean Corpuscular Volume 83.6 fL (80-97); Mean Platelet Volume 8.9 fL (7.5-11.2); Platelet Count 180 10^3/uL (150-450); Red Blood Count 4.44 10^6/uL (4.06-5.63); White Blood Count 5.2 10^3/uL (3.6-10.2)
[2024-06-16 07:12] LABS: Calcium 9.1 mg/dL (8.6-10.3); Creatinine, Serum 0.95 mg/dL (0.67-1.17); Magnesium 1.9 mg/dL (1.9-2.7); Phosphorus 3.1 mg/dL (2.5-5.0); Potassium 4.8 mmol/L (3.5-5.0); eGFR CKD-EPI 92.2 (>60)
[2024-06-16 10:07] VITALS: BP 165/86
== END 2024-06-16 11:00 | disposition home or self-care (01) | DRG 423 ==
LOC: ED 20:49 → EDHOLD 06-13 03:10 → SUATTDRO 06-13 03:10 → ICU 06-13 13:27 → MED 06-15 15:45
PROVIDERS: ADMIT Internal Medicine; ATTEND Internal Medicine